=== PATIENT | female | born 1975 | race Caucasian/White ===

== ENCOUNTER 2019-04-06 12:02 | Emergency (ER) | payer MEDICARE ==
[~2019-04-06] VITALS: Ht 149.9 cm; Wt 69.1 kg
[~2019-04-06 12:02] MED LIST: ADV50250 IH; ALBU2.5V12 NEB; ALBU6.7H9 INH; CYCL10TA10 PO; GABA-532 PO; VENL150C58 PO; ZIPR20CA2 PO
[2019-04-06 12:47] LABS: BASOPHILS % (AUTO) 0.4 % (0-1); EOSINOPHILS % (AUTO) 0.4 % (0-6); HEMATOCRIT 44.9 % (35.0-45.0); HEMOGLOBIN 15.2 g/dl (12.0-16.0); LYMPHOCYTES # (AUTO) 1.8 X10'3 (1.1-4.8); LYMPHOCYTES % (AUTO) 20.3 % (21-51); MEAN CORPUSCULAR HGB CONC 33.9 g/dL (33.0-36.5); MEAN CORPUSCULAR VOLUME 85.5 FL (78-98); MEAN PLATELET VOLUME 8.6 FL (7.4-10.4); MONOCYTES # (AUTO) 0.5 X10'3 (0-0.9); MONOCYTES % (AUTO) 5.7 % (2-12); NEUTROPHILS # (AUTO) 6.6 X10'3 (1.8-7.7); NEUTROPHILS % (AUTO) 73.2 % (42-75); PLATELET COUNT 301 X10'3 (140-440); RED BLOOD COUNT 5.25 X10'6 (4.20-5.60); RED CELL DISTRIBUTION WIDTH 14.4 % (11.5-14.5)
--- NOTE | 2019-04-06 12:51 | NUR ---
patient feels "woozy, like she is floating in the room"
[2019-04-06 12:59] LABS: ALANINE AMINOTRANSFERASE 22 U/L (12-78); ALBUMIN 4.1 G/DL (3.4-5.0); ALBUMIN/GLOBULIN RATIO 1.1 (1.1-1.5); ALKALINE PHOSPHATASE 89 IU/L (46-116); ANION GAP 12 (8-16); ASPARTATE AMINO TRANSFERASE 6 U/L (10-37); BILIRUBIN,TOTAL 0.7 MG/DL (0.1-1.0); BLOOD UREA NITROGEN 9 MG/DL (7-18); BUN/CREATININE RATIO 9.1 (6.6-38.0); CALCIUM 9.3 MG/DL (8.5-10.1); CHLORIDE 105 MMOL/L (99-107); CREATININE 0.99 MG/DL (0.40-0.90); GLUCOSE 98 MG/DL (70-104); POTASSIUM 3.5 MMOL/L (3.5-5.1); SODIUM 141 MMOL/L (135-145); TOTAL CARBON DIOXIDE 23.6 MMOL/L (24-32); eGFR 61 ML/MIN
[2019-04-06 13:08] LABS: CLARITY,URINE CLEAR (Clear); COLOR,URINE YELLOW (Yellow); GLUCOSE, URINE NEGATIVE (Neg); KETONES,URINE NEGATIVE (Neg); LEUKOCYTE ESTERASE ,URINE NEGATIVE (Neg); NITRITES, URINE NEGATIVE (Neg); OCCULT BLOOD,URINE NEGATIVE (Neg); PH,URINE 7.5 (4.8-8.0); PROTEIN,URINE NEGATIVE (Neg); UROBILINOGEN,URINE 0.2 E.U/dL (0.2-1.0)
[2019-04-06 13:09] LABS: UA COLLECTION TYPE CLN CATCH MIDSTREAM
[2019-04-06 13:13] LABS: LIPASE 127 U/L (73-393); MAGNESIUM 1.7 MG/DL (1.5-2.4)
[2019-04-06] MEDS ORDERED: ondansetron 4mg rapidly disintigrating tab PO ONE (13:15)
[2019-04-06 13:18] LABS: URINE HCG NEGATIVE (NEG)
[2019-04-06 13:25] VITALS: BP 143/117
[2019-04-06] MEDS ORDERED: ONDA4TAB6 PO (13:31)
[2019-04-06] MEDS ORDERED: RANI150T8 PO (13:31)
== END 2019-04-06 13:42 | disposition home or self-care (01) ==
LOC: ER 12:03
DX: R10.13 Epigastric pain (principal); R11.2 Nausea with vomiting, unspecified; J45.909 Unspecified asthma, uncomplicated; M79.7 Fibromyalgia; Z56.0 Unemployment, unspecified; Z88.6 Allergy status to analgesic agent; Z88.5 Allergy status to narcotic agent; Z79.899 Other long term (current) drug therapy
CPT/HCPCS: 36415; 80053; 81003; 81025; 83690; 83735; 85025; 85610; 99283

== ENCOUNTER 2021-05-28 10:47 | Observation (INO) | payer MEDICARE, MEDICAID ==
[~2021-05-28] VITALS: Ht 149.9 cm; Wt 49.0 kg
[~2021-05-28 10:47] MED LIST changes: +CYCL-524 PO; -CYCL10TA10 PO; +ONDA4TAB6 PO; +RANI150T8 PO
[2021-05-28] MEDS ORDERED: ibuprofen tablet 400 MG TABLET PO ONE (11:25)
[2021-05-28] MEDS ORDERED: ondansetron 4mg rapidly disintigrating tab PO ONE (12:35)
[2021-05-28] MEDS ORDERED: morphine 4 MG/ML inj SYRINge IM ONE (12:35)
[2021-05-28 14:07] LABS: BASOPHILS % (AUTO) 0.1 % (0-1); EOSINOPHILS % (AUTO) 0 % (0-6); HEMATOCRIT 41.4 % (35.0-45.0); HEMOGLOBIN 13.9 g/dl (12.0-16.0); LYMPHOCYTES # (AUTO) 0.7 X10'3 (1.1-4.8); LYMPHOCYTES % (AUTO) 4.4 % (21-51); MEAN CORPUSCULAR HEMOGLOBIN 29.1 PG (27.0-31.0); MEAN CORPUSCULAR HGB CONC 33.5 g/dL (33.0-36.5); MEAN CORPUSCULAR VOLUME 87.1 FL (78-98); MEAN PLATELET VOLUME 9.6 FL (7.4-10.4); MONOCYTES # (AUTO) 0.7 X10'3 (0-0.9); MONOCYTES % (AUTO) 3.9 % (2-12); NEUTROPHILS # (AUTO) 15.3 X10'3 (1.8-7.7); NEUTROPHILS % (AUTO) 91.6 % (42-75); PLATELET COUNT 287 X10'3 (140-440); RED BLOOD COUNT 4.76 X10'6 (4.20-5.60); RED CELL DISTRIBUTION WIDTH 13.5 % (11.5-14.5); WHITE BLOOD COUNT 16.7 X10'3 (4.5-11.0)
[2021-05-28 14:10] LABS: ALANINE AMINOTRANSFERASE 270 U/L (12-78); ALBUMIN 3.8 G/DL (3.4-5.0); ALKALINE PHOSPHATASE 61 IU/L (46-116); ANION GAP 8 (8-16); ASPARTATE AMINO TRANSFERASE 76 U/L (10-37); BILIRUBIN,TOTAL 0.4 MG/DL (0.1-1.0); BLOOD UREA NITROGEN 12 MG/DL (7-18); BUN/CREATININE RATIO 14.3 (6.6-38.0); CHLORIDE 107 MMOL/L (99-107); CREATININE 0.84 MG/DL (0.40-0.90); GLUCOSE 115 MG/DL (70-104); POTASSIUM 3.5 MMOL/L (3.5-5.1); SODIUM 141 MMOL/L (135-145); TOTAL PROTEIN 7.6 G/DL (6.4-8.2); eGFR 73 ML/MIN
[2021-05-28] MEDS ORDERED: potassium Cl 40MEQ/1/2NS 520ml 520 ML IV PRN ×2 (14:45)
[2021-05-28] MEDS ORDERED: acetaminophen 325mg tablet PO PRN ×2 (14:45→22:10)
[2021-05-28] MEDS ORDERED: morphine 2 MG/ML inj. syringe IV PRN ×3 (14:45→21:30)
[2021-05-28] MEDS ORDERED: magnesium 2GM in 50ml NS 50 ML IV PRN (14:45)
[2021-05-28] MEDS ORDERED: magnesium 4gm in 100ml NS 100 ML IV PRN (14:45)
[2021-05-28] MEDS ORDERED: potassium Cl 20 mEq SR tablet PO PRN ×2 (14:45)
[2021-05-28] MEDS ORDERED: normal saline 1000ml 1,000 ML IV SCH (14:45)
[2021-05-28] MEDS ORDERED: ondansetron/PF 4mg/2ml inj IV PRN ×3 (14:45→22:10)
[2021-05-28] MEDS ORDERED: magnesium Cl slow-release 64mg tablet PO PRN (14:45)
[2021-05-28] MEDS ORDERED: ALBU8HFA PO (15:06)
[2021-05-28] MEDS ORDERED: albuterol 2.5 MG/3 ML nebule NEB PRN (16:00)
[2021-05-28] MEDS ORDERED: morphine 4 MG/ML inj SYRINge IV ONE (17:20)
[2021-05-28] MEDS ORDERED: K and/or MAG REPLACEMENT MC SCH (20:00)
[2021-05-28] MEDS ORDERED: fentaNYL/PF 50MCG/1 ML 2ML syringe ONE ×2 (20:21→21:54)
[2021-05-28] MEDS ORDERED: midazolam 1 mg/ML 2ml injection ONE (20:22)
[2021-05-28] MEDS ORDERED: ROPIVAcaine 0.5% (5mg/ml) 30ml vial ONE (20:56)
[2021-05-28] MEDS ORDERED: propofol inj 20 ML IV ONE (20:57)
[2021-05-28] MEDS ORDERED: morphine 4 MG/ML inj SYRINge IV PRN (21:30)
[2021-05-28] MEDS ORDERED: meperidine/PF 25mg/ml syringe IV PRN ×3 (21:30)
[2021-05-28] MEDS ORDERED: ringers solution, lacted 1,000 ML IV SCH (21:30)
[2021-05-28] MEDS ORDERED: proCHLORperazine 10 MG/2 ml inj IV PRN (21:30)
[2021-05-28] MEDS ORDERED: ondansetron/PF 4mg/2ml inj ONE (21:46)
[2021-05-28] MEDS ORDERED: rocuronium 10mg/ml inj IV ONE (21:53)
[2021-05-28] MEDS ORDERED: sugammadex 200mg/2ml injection IV ONE (22:03)
[2021-05-28] MEDS ORDERED: HYDROmorphone inj. 0.5 MG/0.5 ML DISP.SYRIN IV PRN (22:10)
[2021-05-28] MEDS ORDERED: HYDROmorphone 1 mg/ml syringe IV PRN (22:10)
[2021-05-28] MEDS ORDERED: magnesium hydroxide 30ml (MOM) UD suspension PO PRN (22:10)
[2021-05-28] MEDS ORDERED: bisacodyl 10mg suppository rectal RC PRN (22:10)
[2021-05-28] MEDS ORDERED: potassium cl 20mEq in 1/2 NS 1,000 ML IV SCH (22:10)
[2021-05-28] MEDS ORDERED: oxyCODONE IR 5mg (immed. release) tablet PO PRN (22:10)
[2021-05-28] MEDS ORDERED: diphenhydrAMINE 25mg capsule PO PRN ×2 (22:10)
[2021-05-28 22:11] VITALS: BP 127/80
--- NOTE | 2021-05-28 22:11 | NUR ---
Received from OR via ORTHO BED , accompanied by Anesthesiologist ERNESTO and report given by Anesthesiolgist. PATIENT WITH ROSALIE BRACE LOCKED TO RIGHT LE. + DP PRESENT ON RIGHT FOOT. MEDICATED FOR PAIN UPON ARRIVAL VSS. 10L MASK ON WITH 100% SATRUATIONS AND 20G PIV IN RIGHT UE RUNNING LR AT 100. Addendum: 05/28/21 at 2599 by Juancarlos Rocha RN, RN Amended: Links added.
[2021-05-28 22:21] VITALS: BP 127/89
[2021-05-28 22:31] VITALS: BP 129/76
[2021-05-28 22:41] VITALS: BP 131/74
--- NOTE | 2021-05-28 22:51 | NUR ---
PATIENT HAS MET ALL CRITERIA FOR TRANSFER TO THE SURGICAL FLOOR. VSS. DRESSINGS INTACT. BED LOW, CALL LIGHT PRESENT AND 2 RAILS UP. RN PRESENT TO ACCEPT CARE OF PATIENT AND REPORT HAS BEEN CALLED. ALL QUESTIONS ANSWERED TO ACCEPTING RN. Addendum: 05/28/21 at 2258 by Juancarlos Barrett - LACY RN Amended: Links added.
[2021-05-28 23:30] VITALS: BP 132/74
[2021-05-28 23:45] VITALS: BP 119/66
[2021-05-29] VITALS (8 sets, daily range): BP systolic 108–137; BP diastolic 65–80
[2021-05-29] MEDS: oxyCODONE IR 5mg (immed. release) tablet PO PRN ×2 (00:52→10:25)
[2021-05-29] MEDS: ceFAZolin/D5W- 1GM premix 50 ML IV SCH ×2 (00:55→10:25)
[2021-05-29] MEDS: acetaminophen 325mg tablet PO SCH ×3 (01:25→14:12)
[2021-05-29 06:11] LABS: BASOPHILS % (AUTO) 0 % (0-1); EOSINOPHILS % (AUTO) 0 % (0-6); HEMOGLOBIN 12.9 g/dl (12.0-16.0); LYMPHOCYTES # (AUTO) 0.5 X10'3 (1.1-4.8); LYMPHOCYTES % (AUTO) 4.7 % (21-51); MEAN CORPUSCULAR HEMOGLOBIN 29.3 PG (27.0-31.0); MEAN CORPUSCULAR HGB CONC 33.9 g/dL (33.0-36.5); MEAN CORPUSCULAR VOLUME 86.5 FL (78-98); MEAN PLATELET VOLUME 9.8 FL (7.4-10.4); MONOCYTES # (AUTO) 0.2 X10'3 (0-0.9); MONOCYTES % (AUTO) 2.1 % (2-12); NEUTROPHILS # (AUTO) 10.6 X10'3 (1.8-7.7); NEUTROPHILS % (AUTO) 93.2 % (42-75); PLATELET COUNT 211 X10'3 (140-440); RED CELL DISTRIBUTION WIDTH 13.4 % (11.5-14.5); WHITE BLOOD COUNT 11.3 X10'3 (4.5-11.0)
[2021-05-29 06:28] LABS: ALBUMIN 3.1 G/DL (3.4-5.0); ANION GAP 9 (8-16); BLOOD UREA NITROGEN 6 MG/DL (7-18); BUN/CREATININE RATIO 7.5 (6.6-38.0); CALCIUM 8.2 MG/DL (8.5-10.1); CHLORIDE 108 MMOL/L (99-107); GLUCOSE 138 MG/DL (70-104); MAGNESIUM 1.6 MG/DL (1.5-2.4); POTASSIUM 3.8 MMOL/L (3.5-5.1); SODIUM 140 MMOL/L (135-145); TOTAL CARBON DIOXIDE 23.5 MMOL/L (24-32); eGFR 78 ML/MIN
--- NOTE | 2021-05-29 07:31 | NUR ---
Patient in room [facility] 347A. I have received report from LACY KEBEDE and had the opportunity to ask questions and assume patient care.
[2021-05-29] MEDS ORDERED: vancomycin/NS 1 GM ADD-VANTAGE 250 ML IV SCH (08:00)
[2021-05-29] MEDS ORDERED: FLU VACC QS2021-22(6MOS UP)/PF 60 MCG/0.5 ML SYRINGE IM ONE (10:00)
[2021-05-29] MEDS: gabapentin 300mg capsule PO SCH ×2 (10:25→12:40)
[2021-05-29 10:39] LABS: ALANINE AMINOTRANSFERASE 220 U/L (12-78); ALKALINE PHOSPHATASE 54 IU/L (46-116); ASPARTATE AMINO TRANSFERASE 38 U/L (10-37); BILIRUBIN,TOTAL 0.4 MG/DL (0.1-1.0)
[2021-05-29] MEDS ORDERED: OXYC-658 PO (12:28)
[2021-05-29] MEDS ORDERED: ASPI81TA52 PO (15:51)
--- NOTE | 2021-05-29 17:35 | NUR ---
PATIENT STABLE AND APPROPRIATE FOR DISCHARGE, IV TAKEN OUT, EDUCATION GIVEN, WOUND CARE SUPPLIES GIVEN FOR HOME CHANGES, PATIENT SENT HOME WITH IMMOBILIZER AT 0 DEGREES, NEW MEDS E-SCRIPTED TO PREFERRED PHARMACY, ALL BELONGINGS SENT WITH PATIENT, PATIENT TAKEN TO LOBBY IN WHEELCHAIR WHERE DAD WILL TAKE PATIENT HOME
[2021-05-29] MEDS ORDERED: sennosides 8.6mg tablet PO SCH (21:00)
[2021-05-30 09:26] LABS: HEPATITIS C ANTIBODY <0.1 s/co ratio (0.0-0.9)
[2021-05-30] MEDS ORDERED: acetaminophen 325mg tablet PO PRN (22:10)
== END 2021-05-29 17:45 | disposition home or self-care (01) ==
LOC: ER 10:48 → UNDOADMIN 14:50 → ED HOLD 14:50 → INTOOBSV 22:13 → ED HOLD 22:13 → SUR 3N 22:50
PROVIDERS: ADMIT Internal Medicine; ATTEND Internal Medicine
DX: S82.141A Displaced bicondylar fracture of right tibia, initial encounter for closed fracture (principal); Z20.822 Contact with and (suspected) exposure to COVID-19; S89.92XA Unspecified injury of left lower leg, initial encounter; J45.909 Unspecified asthma, uncomplicated; G89.29 Other chronic pain; M79.7 Fibromyalgia; R79.89 Other specified abnormal findings of blood chemistry; D72.829 Elevated white blood cell count, unspecified; F32.A Depression, unspecified; F12.90 Cannabis use, unspecified, uncomplicated; Z87.891 Personal history of nicotine dependence; Z79.899 Other long term (current) drug therapy; Z23 Encounter for immunization; V29.9XXA Motorcycle rider (driver) (passenger) injured in unspecified traffic accident, initial encounter; Y93.55 Activity, bike riding; Y92.410 Unspecified street and highway as the place of occurrence of the external cause
CPT/HCPCS: 27535; 36415; 73560; 73564; 80048; 80053; 82247; 83735; 84075; 84450; 84460; 85025; 86705; 86706; 86803; 87081; 87635; 96365; 96366; 96367; 96372; 96375; 96376; 97116; 97161; 97530; A6223; C1713; C9399; G0008; G0378; J0690; J1170; J2175; J2250; J2270; J2405; J2704; J3010; J3370; 76000; 96374; 99284; 99285; A4215; A4618; A6446; A6449; A7000; J2795; J3480

== ENCOUNTER 2021-07-01 13:16 | Emergency (ER) | payer MEDICARE, MEDICAID ==
[~2021-07-01] VITALS: Ht 149.9 cm; Wt 48.6 kg
[~2021-07-01 13:16] MED LIST changes: -ADV50250 IH; -ALBU2.5V12 NEB; -ALBU6.7H9 INH; +ALBU8HFA PO; +ASPI81TA52 PO; -CYCL-524 PO; -GABA-532 PO; -ONDA4TAB6 PO; +OXYC-658 PO; -RANI150T8 PO; -VENL150C58 PO; -ZIPR20CA2 PO
[2021-07-01 14:03] VITALS: BP 133/73
[2021-07-01] MEDS ORDERED: MUPI22OI30 TOP (14:21)
== END 2021-07-01 14:47 | disposition home or self-care (01) ==
LOC: ER 13:17
DX: L03.032 Cellulitis of left toe (principal); G40.909 Epilepsy, unspecified, not intractable, without status epilepticus; J45.909 Unspecified asthma, uncomplicated; M79.7 Fibromyalgia; Z87.01 Personal history of pneumonia (recurrent); Z56.0 Unemployment, unspecified; Z88.8 Allergy status to other drugs, medicaments and biological substances; Z91.018 Allergy to other foods; Z79.82 Long term (current) use of aspirin; Z79.2 Long term (current) use of antibiotics
CPT/HCPCS: 99283

== ENCOUNTER 2021-07-08 10:13 | Emergency (ER) | payer MEDICARE, MEDICAID ==
[~2021-07-08] VITALS: Ht 149.9 cm; Wt 48.6 kg
[2021-07-08 10:14] VITALS: BP 143/77
[2021-07-08] MEDS ORDERED: CEPH250T PO (10:24)
== END 2021-07-08 10:44 | disposition home or self-care (01) ==
LOC: ER 10:13
DX: L03.012 Cellulitis of left finger (principal); J45.909 Unspecified asthma, uncomplicated; F32.9 Major depressive disorder, single episode, unspecified; Z86.69 Personal history of other diseases of the nervous system and sense organs; Z87.01 Personal history of pneumonia (recurrent); Z56.0 Unemployment, unspecified; Z88.6 Allergy status to analgesic agent; Z88.8 Allergy status to other drugs, medicaments and biological substances; Z79.82 Long term (current) use of aspirin; Z79.2 Long term (current) use of antibiotics
CPT/HCPCS: 99283

== ENCOUNTER 2021-07-16 09:02 | Emergency (ER) | payer MEDICARE, MEDICAID ==
[~2021-07-16] VITALS: Ht 233.7 cm; Wt 44.5 kg
[~2021-07-16 09:02] MED LIST changes: -ASPI81TA52 PO; +CEPH250T PO
[2021-07-16 09:21] VITALS: BP 126/88
[2021-07-16] MEDS ORDERED: SULF1TAB49 PO (10:11)
== END 2021-07-16 10:34 | disposition home or self-care (01) ==
LOC: ER 09:02
DX: L03.012 Cellulitis of left finger (principal); J45.909 Unspecified asthma, uncomplicated; F32.9 Major depressive disorder, single episode, unspecified; Z86.69 Personal history of other diseases of the nervous system and sense organs; Z87.01 Personal history of pneumonia (recurrent); Z56.0 Unemployment, unspecified; Z88.6 Allergy status to analgesic agent; Z88.8 Allergy status to other drugs, medicaments and biological substances; Z79.2 Long term (current) use of antibiotics
CPT/HCPCS: 73140; 99283

== ENCOUNTER 2021-07-22 10:16 | Emergency (ER) | payer MEDICARE, MEDICAID ==
[~2021-07-22] VITALS: Ht 149.9 cm; Wt 44.5 kg
[~2021-07-22 10:16] MED LIST changes: -CEPH250T PO; +SULF1TAB49 PO
[2021-07-22 18:55] VITALS: BP 124/90
[2021-07-22] MEDS ORDERED: LIDOcaine 1% 30ml preserv. free vial IJ ONE (19:00)
[2021-07-22] MEDS ORDERED: mupirocin 2% ointment 22GM TP ONE (19:00)
[2021-07-22] MEDS ORDERED: DOXY100T2 PO (19:39)
== END 2021-07-22 20:17 | disposition home or self-care (01) ==
LOC: ER 10:16
DX: L03.012 Cellulitis of left finger (principal); M79.645 Pain in left finger(s); R11.0 Nausea; J45.909 Unspecified asthma, uncomplicated; F32.9 Major depressive disorder, single episode, unspecified; F17.200 Nicotine dependence, unspecified, uncomplicated; Z86.69 Personal history of other diseases of the nervous system and sense organs; Z87.01 Personal history of pneumonia (recurrent); Z86.14 Personal history of Methicillin resistant Staphylococcus aureus infection; Z56.0 Unemployment, unspecified; Z88.6 Allergy status to analgesic agent; Z88.8 Allergy status to other drugs, medicaments and biological substances; Z79.2 Long term (current) use of antibiotics
CPT/HCPCS: 10060; 99283

== ENCOUNTER 2022-02-20 12:15 | Emergency (ER) | payer MEDICARE, MEDICAID ==
[~2022-02-20] VITALS: Ht 149.9 cm; Wt 50.5 kg
[~2022-02-20 12:15] MED LIST changes: +DOXY100T2 PO; -SULF1TAB49 PO
[2022-02-20 12:43] VITALS: BP 139/75
[2022-02-20] MEDS ORDERED: AMOX-580 PO (16:09)
== END 2022-02-20 16:37 | disposition home or self-care (01) ==
LOC: ER 12:16
DX: L03.114 Cellulitis of left upper limb (principal); J45.909 Unspecified asthma, uncomplicated; Z88.5 Allergy status to narcotic agent; Z88.8 Allergy status to other drugs, medicaments and biological substances
CPT/HCPCS: 99283